=== PATIENT | female | born 1955 ===

== ENCOUNTER 2019-06-29 06:00 | Day surgery (SDC) | payer OTHER | END 2019-06-29 10:25 | disposition home or self-care (01) | LOC: AMB-ENDOS 06:00 | DX: K64.8 Other hemorrhoids (principal); Z12.11 Encounter for screening for malignant neoplasm of colon ==

== ENCOUNTER 2019-09-02 05:30 | Day surgery (SDC) | payer OTHER ==
[~2019-09-02 05:30] MED LIST: COZAAR25 MG PO; GLIPIZIDE XL5 MG PO; HORIZANT300 MG PO; JANUMET 50-5001 EACH PO
== END 2019-09-02 18:55 | disposition home or self-care (01) ==
LOC: CIR.AMB 05:30 → AMB-ENDOS 10:45 → CIR.AMB 10:45
DX: K56.51 Intestinal adhesions [bands], with partial obstruction (principal); K64.8 Other hemorrhoids; Z12.11 Encounter for screening for malignant neoplasm of colon; K52.89 Other specified noninfective gastroenteritis and colitis; N73.6 Female pelvic peritoneal adhesions (postinfective)